=== PATIENT | male | born 1980 | race Caucasian/White ===

== ENCOUNTER 2016-07-13 18:37 | Emergency (ER) | payer BC ==
[2016-07-13 18:43] VITALS: BP 126/70; PULSE 73; TEMP 97.6; BMI 28.5
--- NOTE | 2016-07-13 19:09 | PDOC ---
History of Present Illness - General History Source: Patient Exam Limitations: No Limitations - History of Present Illness Initial Comments: 07/13/16 19:29 The patient is a 36 year old female, who presents to the emergency department with chest pain, shortness of breath and cough since this morning. He describes his chest pain as mild, without radiation. He notes that the pain is exacerbated when he takes a deep breath. He notes that his cough is dry in nature. He states that last year he had similar symptoms, which ended up being walking pneumonia as per patient. The patient denies headache and dizziness. Denies fever, chills, nausea, vomit, diarrhea and constipation. PAST MEDICAL HISTORY: Pneumonia PAST SURGICAL HISTORY: no significant history FAMILY HISTORY: no pertinent history SOCIAL HISTORY: Pt lives with family and is employed. MEDICATIONS: reviewed ALLERGIES: As per nursing notes <Lele Soni - Last Filed: 07/13/16 19:28> - General History Source: Patient Exam Limitations: No Limitations - History of Present Illness Initial Comments: 07/13/16 20:04 A portion of this note was documented by scribe services under my direction. I have reviewed the details of the note, within reason, and agree with the documentation. The case summary and management plan written by me. Assessment and plan: This is a 36-year-old male who comes in complaining of cough and pleuritic type chest pain 1 day. Patient denies any fevers or chills. Patient did not take anything for the pain. Patient is otherwise healthy and has no other complaints. Patient said's cough is nonproductive patient was concerned because he said last time he had similar pain it ended up being walking pneumonia. Patient's chest x-ray shows no acute pathology including no infiltrate. Patient discharged home told to take ibuprofen for the pain and follow-up with his primary care doctor. <Candelario Evans I - Last Filed: 07/13/16 20:05> - General Chief Complaint: Respiratory Stated Complaint: COUGH, CHEST PAIN Time Seen by Provider: 07/13/16 19:06 Past History <Lele Soni - Last Filed: 07/13/16 19:28> - Past Medical History Other medical history: DENIES - Immunization History Td Vaccination: No Immunization Up to Date: Yes - Psycho/Social/Smoking Cessation Hx Anxiety: No Suicidal Ideation: No Smoking Status: No Smoking History: Never smoked Number of Cigarettes Smoked Daily: 0 Information on smoking cessation initiated: No Hx Alcohol Use: No Drug/Substance Use Hx: No Substance Use Type: None <Candelario Evans I - Last Filed: 07/13/16 20:05> - Past Medical History Allergies/Adverse Reactions: Allergies Allergy/AdvReac Type Severity Reaction Status Date / Time No Known Allergies Allergy Verified 07/13/16 18:38 Home Medications: Ambulatory Orders Multivitamins [Tab-A-Vit -] 1 tab PO DAILY 07/13/16 Review of Systems - Review of Systems Able to Perform ROS?: Yes Comments:: 07/13/16 19:29 General: No fevers or chills, no weakness, no weight loss HEENT: No change in vision. No sore throat,. No ear pain CardioVascular: +Chest pain, and shortness of breath Respiratory: +Cough. No wheezing. Gastrointestinal: no nausea, vomiting, diarrhea or constipation, No rectal bleeding Genitourinary: No dysuria, hematuria, or frequency Musculoskeletal: No joint or muscle pain or swelling Neurologic: No headache, vertigo, dizziness or loss of consciousness Psychiatric: nor depression Skin: No rashes or easy bruising Endocrine: no increased thirst or abnormal weight change Allergic: no skin or latex allergy All other systems reviewed and normal <Lele Soni - Last Filed: 07/13/16 19:28> *Physical Exam - Vital Signs Last Vital Signs Temp Pulse Resp BP Pulse Ox 97.6 F 73 18 126/70 100 07/13/16 18:38 07/13/16 18:38 07/13/16 18:38 07/13/16 18:38 07/13/16 18:38 - Physical Exam Comments: 07/13/16 19:29 General: Well-nourished well-developed individual, no acute distress HEENT: Throat: Normal, tonsils normal, no erythema or exudate Neck: Supple, no meningeal signs, no lymphadenopathy Eyes::Pupils equal reactive and round, extraocular motion intact Chest: Nontender to palpation Cardiac: S1-S2 normal, regular rate and rhythm, no murmurs rubs or gallops Respiratory: Lungs clear to auscultation bilateral Abdomen: Soft, nondistended, normal bowel sounds, nontender to palpation diffusely Extremities: Warm, dry, no cyanosis, clubbing, or edema Skin: No rashes Neuro: Alert and oriented x3, nonfocal exam, grossly intact, normal gait Psych: Normal mood and affect <Lele Soni - Last Filed: 07/13/16 19:28> - Vital Signs Last Vital Signs Temp Pulse Resp BP Pulse Ox 97.6 F 73 18 126/70 100 07/13/16 18:38 07/13/16 18:38 07/13/16 18:38 07/13/16 18:38 07/13/16 18:38 <Candelario Evans I - Last Filed: 07/13/16 20:05> *DC/Admit/Observation/Transfer - Attestations Scribe Attestion: 07/13/16 19:30 Documentation prepared by Lele Soni, acting as medical physics professor for Candelario Evans MD <Lele Soni - Last Filed: 07/13/16 19:28> - Discharge Dispostion Admit: No <Candelario Evans I - Last Filed: 07/13/16 20:05> Diagnosis at time of Disposition: Pleurisy - Discharge Dispostion Disposition: HOME Condition at time of disposition: Stable - Patient Instructions Additional Instructions: For the pain take ibuprofen 3 tablets 3 times a day with food don't take on an empty stomach. Return to the emergency department immediately with ANY new, persistent or worsening symptoms. Continue any medications as previously prescribed by your physician. You should follow up with your primary doctor as soon as possible regarding today's emergency department visit. . Please make sure your doctor reviews the results of your emergency evaluation. Thank you for coming to the Emergency Department today for your care. It was a pleasure to see you today. Please note that your evaluation is INCOMPLETE until you follow-up with your doctor.
[2016-07-13] MEDS ORDERED: IBUPROFEN 600 MG TABLET (FP) PO ONE ×2 (19:24→19:32)
== END 2016-07-13 20:20 | disposition home or self-care (01) ==
LOC: FER 18:37
DX: R09.1 Pleurisy (principal)
CPT/HCPCS: 71020-TC; 99283-25

== ENCOUNTER 2016-08-04 21:12 | Emergency (ER) | payer BC ==
[2016-08-04 21:22] VITALS: BP 128/81; PULSE 63; TEMP 97.6; BMI 28.7
--- NOTE | 2016-08-04 21:25 | PDOC ---
History of Present Illness - General History Source: Patient Exam Limitations: No Limitations - History of Present Illness Initial Comments: 08/04/16 21:36 The patient is a 36 year old male, with no significant past medical history, who presents to the emergency department with 3 weeks of a running water sensation in his right ear. The patient reports that this sensation feels as though water is running in his right ear and when he stood up today he felt a wave of dizziness that has persisted throughout the day. PMH: Pneumonia Allergies: None Past surgical history: None Social history: Never smoked <Britany Simpson - Last Filed: 08/04/16 21:36> <Navjot Carrasquillo - Last Filed: 08/05/16 03:46> - General Chief Complaint: Lightheaded Stated Complaint: DIZZY Time Seen by Provider: 08/04/16 21:25 Past History <Britany Simpson - Last Filed: 08/04/16 21:36> - Past Medical History Other medical history: DENIES - Immunization History Td Vaccination: No Immunization Up to Date: Yes - Psycho/Social/Smoking Cessation Hx Anxiety: No Suicidal Ideation: No Smoking Status: No Smoking History: Never smoked Have you smoked in the past 12 months: No Number of Cigarettes Smoked Daily: 0 Information on smoking cessation initiated: No Hx Alcohol Use: No Drug/Substance Use Hx: No Substance Use Type: None <Navjot Carrasquillo - Last Filed: 08/05/16 03:46> - Past Medical History Allergies/Adverse Reactions: Allergies Allergy/AdvReac Type Severity Reaction Status Date / Time No Known Allergies Allergy Verified 08/04/16 21:13 Home Medications: Ambulatory Orders Meclizine HCl 25 mg PO TID PRN #12 tablet 08/04/16 Ondansetron HCl [Zofran] 4 mg PO TID PRN #9 tablet 08/04/16 Review of Systems - Review of Systems Able to Perform ROS?: Yes Comments:: 08/04/16 21:36 GENERAL/CONSTITUTIONAL: No fever or chills. No weakness. HEAD, EYES, EARS, NOSE AND THROAT: +Running water sensation in right ear No change in vision. No sore throat. CARDIOVASCULAR: No chest pain or shortness of breath. RESPIRATORY: No cough, wheezing, or hemoptysis. GASTROINTESTINAL: No nausea, vomiting, diarrhea or constipation. GENITOURINARY: No dysuria, frequency, or change in urination. MUSCULOSKELETAL: No joint or muscle swelling or pain. No neck or back pain. SKIN: No rash NEUROLOGIC: +Dizziness No headache, loss of consciousness, or change in strength/sensation. ENDOCRINE: No increased thirst. No abnormal weight change. HEMATOLOGIC/LYMPHATIC: No anemia, easy bleeding, or history of blood clots. ALLERGIC/IMMUNOLOGIC: No hives or skin allergy. <Britany Simpson - Last Filed: 08/04/16 21:36> - Review of Systems ABD/GI: Yes: Nausea. No: Vomiting <Navjot Carrasquillo - Last Filed: 08/05/16 03:46> *Physical Exam - Vital Signs Last Vital Signs Temp Pulse Resp BP Pulse Ox 97.6 F 63 16 128/81 100 08/04/16 21:17 08/04/16 21:17 08/04/16 21:17 08/04/16 21:17 08/04/16 21:17 - Physical Exam Comments: 08/04/16 21:37 GENERAL: Awake, alert, and fully oriented, in no acute distress HEAD: No signs of trauma EYES: PERRLA, EOMI, sclera anicteric, conjunctiva clear ENT: +Effusion behind right tympanic membrane Hearing grossly normal, nares patent, oropharynx clear without exudates. Moist mucosa NECK: Normal ROM, supple, no lymphadenopathy, JVD, or masses LUNGS: Breath sounds equal, clear to auscultation bilaterally. No wheezes, and no crackles HEART: Regular rate and rhythm, normal S1 and S2, no murmurs, rubs or gallops ABDOMEN: Soft, nontender, normoactive bowel sounds. No guarding, no rebound. No masses EXTREMITIES: Normal range of motion, no edema. No clubbing or cyanosis. No cords, erythema, or tenderness NEUROLOGICAL: Cranial nerves II through XII grossly intact. Normal speech, normal gait SKIN: Warm, Dry, normal turgor, no rashes or lesions noted. 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 negative: EOM Palsy <Navjot Carrasquillo - Last Filed: 08/05/16 03:46> ED Treatment Course - Medications Given in the ED: ED Medications Discontinued Medications Generic Name Dose Route Start Last Admin Trade Name Freq PRN Reason Stop Dose Admin Meclizine HCl 25 mg 08/04/16 21:35 08/04/16 21:35 Antivert - PO 08/04/16 21:36 25 mg NOW ONE Administration <Britany Simpson - Last Filed: 08/04/16 21:36> Medical Decision Making - Medical Decision Making 08/05/16 03:46 peripherla vertigo improved in ED after meclizine <Navjot Carrasquillo - Last Filed: 08/05/16 03:46> *DC/Admit/Observation/Transfer - Attestations Scribe Attestion: 08/04/16 21:37 Documentation prepared by EMMANUELLE Burns, acting as medical insurance collector for Navjot Carrasquillo MD. <Britany Simpson - Last Filed: 08/04/16 21:36> <Navjot Carrasquillo - Last Filed: 08/05/16 03:46> Diagnosis at time of Disposition: Neuronitis - Discharge Dispostion Disposition: HOME Condition at time of disposition: Stable - Prescriptions Prescriptions: Meclizine HCl 25 mg PO TID PRN #12 tablet PRN Reason: dizziness Ondansetron HCl [Zofran] 4 mg PO TID PRN #9 tablet PRN Reason: Nausea - Patient Instructions Printed Discharge Instructions: DI for Dizziness-Nonvertigo - Post Discharge Activity Work/School Note: Back to Work
[2016-08-04] MEDS ORDERED: MECLIZINE HCL 25 MG TABLET (FP) PO ONE (21:35)
== END 2016-08-04 22:11 | disposition home or self-care (01) ==
LOC: FER 21:12
DX: G58.9 Mononeuropathy, unspecified (principal)
CPT/HCPCS: 99281-25